=== PATIENT | female | born 1965 | race American Indian/Alaskan Native ===

== ENCOUNTER 2018-08-26 19:41 | Emergency (ER) | payer SELFPAY ==
[2018-08-26 20:17] LABS: Basophils # (Auto) 0.1 K/mm3 (0.0-0.1); Basophils % (Auto) 1.1 % (0.0-1.8); Eosinophils # (Auto) 0.2 K/mm3 (0.0-0.4); Eosinophils % (Auto) 2.5 % (0.0-4.3); Hematocrit 26.4 % (30.3-42.9); Lymphocytes # (Auto) 2.2 K/mm3 (1.2-5.4); Lymphocytes % (Auto) 32.6 % (13.4-35.0); Mean Corpuscular HGB Conc 30 % (30-34); Monocytes # (Auto) 0.6 K/mm3 (0.0-0.8); Monocytes % (Auto) 9.5 % (0.0-7.3); Platelet Count 484 K/mm3 (140-440); Red Blood Count 3.94 M/mm3 (3.65-5.03); Red Cell Distribution Width 19.3 % (13.2-15.2)
[2018-08-26 20:30] LABS: Mean Corpuscular Volume 67 fl (79-97)
[2018-08-26 20:33] LABS: BUN/Creatinine Ratio 19; Blood Urea Nitrogen 15 mg/dL (7-17); Calcium 10.1 mg/dL (8.4-10.2); Hemolysis Index 1
[2018-08-26 20:33] LABS: Bacteria,Urine 2+ /HPF (Negative); Bilirubin,Urine NEG (Negative); Blood,Urine NEG (Negative); Color,Urine Yellow (Yellow); Mucus,Urine 3+ /HPF; Urobilinogen,Urine < 2.0 mg/dL (<2.0)
[2018-08-26 20:35] LABS: HCG Qualitative,Urine Negative (Negative)
--- NOTE | 2018-08-26 22:24 | Emergency Department Report ---
ED Female HPI - General Chief complaint: Urogenital-Female Stated complaint: BACTERIA INFECTION Time Seen by Provider: 08/26/18 21:14 Source: patient Mode of arrival: Ambulatory Limitations: No Limitations - History of Present Illness Initial comments: Patient is a 52-year-old female who presents to emergency room with complaints of clear vaginal discharge that began 5 days ago. She has associated itching, burning, irritation, dysuria. States she did use douching. She denies any nausea, vomiting, diarrhea, fever, abdominal pain. States she is sexually active with one partner and uses protection. Denies any past medical history or allergies to medications. She states her last menstrual cycle was 2 weeks ago. The patient states she is a nonsmoker, occasional drinker, no drug use. she states it feels just like when she had BV in the past. - Related Data Previous Rx's Medication Instructions Recorded Last Taken Type Ferrous Sulfate [Ferrous Sulfate 324 mg PO DAILY #30 tablet. 08/26/18 Unknown Rx 324 MG] metroNIDAZOLE [Flagyl TAB] 500 mg PO Q12HR 7 Days #14 tab 08/26/18 Unknown Rx Allergies Allergy/AdvReac Type Severity Reaction Status Date / Time No Known Allergies Allergy Verified 08/26/18 19:49 ED Review of Systems ROS: Stated complaint: BACTERIA INFECTION Other details as noted in HPI Comment: All other systems reviewed and negative ED Past Medical Hx - Past Medical History Previous Medical History?: No - Surgical History Past Surgical History?: Yes Additional Surgical History: ear surgery - Social History Smoking Status: Never Smoker Substance Use Type: None - Medications Home Medications: Home Medications Medication Instructions Recorded Confirmed Last Taken Type Ferrous Sulfate [Ferrous Sulfate 324 mg PO DAILY #30 tablet. 08/26/18 Unknown Rx 324 MG] metroNIDAZOLE [Flagyl TAB] 500 mg PO Q12HR 7 Days #14 tab 08/26/18 Unknown Rx ED Physical Exam - General Limitations: No Limitations General appearance: alert, in no apparent distress - Head Head exam: Present: atraumatic, normocephalic - Eye Eye exam: Present: normal appearance, PERRL - ENT ENT exam: Present: mucous membranes moist - Respiratory Respiratory exam: Present: normal lung sounds bilaterally. Absent: respiratory distress, wheezes, rales, rhonchi, stridor, chest wall tenderness, accessory muscle use, decreased breath sounds, prolonged expiratory - Cardiovascular Cardiovascular Exam: Present: regular rate, normal rhythm, normal heart sounds. Absent: systolic murmur, diastolic murmur, rubs, gallop - GI/Abdominal GI/Abdominal exam: Present: soft, normal bowel sounds. Absent: distended, tende rness, guarding, rebound, rigid - External exam: Present: normal external exam. Absent: erythema, swelling, lesions, lacerations, ecchymosis, bleeding Speculum exam: Present: vaginal discharge (clear), cervical discharge (clear), other (applied behavior science specialist: carneisha, tech). Absent: vaginal bleeding, foreign body, tissue Bi-manual exam: Present: normal bi-manual exam. Absent: cervical motion tendernes, adnexal tenderness, adnexal mass - Back Exam Back exam: Absent: CVA tenderness (R), CVA tenderness (L) - Neurological Exam Neurological exam: Present: alert, oriented X3 - Psychiatric Psychiatric exam: Present: normal affect, normal mood - Skin Skin exam: Present: warm, dry, intact ED Course Vital Signs 08/26/18 19:47 Temperature 98.4 F Pulse Rate 90 Respiratory 16 Rate Blood Pressure 146/86 O2 Sat by Pulse 99 Oximetry ED Medical Decision Making - Lab Data Result diagrams: 08/26/18 19:59 08/26/18 19:59 Lab Results 08/26/18 08/26/18 08/26/18 Range/Units 19:59 19:59 20:00 WBC 6.8 (4.5-11.0) K/mm3 RBC 3.94 (3.65-5.03) M/mm3 Hgb 8.0 L (10.1-14.3) gm/dl Hct 26.4 L (30.3-42.9) % MCV 67 L (79-97) fl MCH 20 L (28-32) pg MCHC 30 (30-34) % RDW 19.3 H (13.2-15.2) % Plt Count 484 H (140-440) K/mm3 Lymph % (Auto) 32.6 (13.4-35.0) % Falls % (Auto) 9.5 H (0.0-7.3) % Eos % (Auto) 2.5 (0.0-4.3) % Baso % (Auto) 1.1 (0.0-1.8) % Lymph # 2.2 (1.2-5.4) K/mm3 Falls # 0.6 (0.0-0.8) K/mm3 Eos # 0.2 (0.0-0.4) K/mm3 Baso # 0.1 (0.0-0.1) K/mm3 Seg Neutrophils % 54.3 (40.0-70.0) % Seg Neutrophils # 3.7 (1.8-7.7) K/mm3 Sodium 139 (137-145) mmol/L Potassium 3.3 L (3.6-5.0) mmol/L Chloride 104.1 (98-107) mmol/L Carbon Dioxide 24 (22-30) mmol/L Anion Gap 14 mmol/L BUN 15 (7-17) mg/dL Creatinine 0.8 (0.7-1.2) mg/dL Estimated GFR > 60 ml/min BUN/Creatinine Ratio 19 % Glucose 99 (65-100) mg/dL Calcium 10.1 (8.4-10.2) mg/dL Urine Color Yellow (Yellow) Urine Turbidity Slightly-cloudy (Clear) Urine pH 5.0 (5.0-7.0) Ur Specific [place] 1.026 (1.003-1.030) Urine Protein 30 mg/dl (Negative) mg/dL Urine Glucose (UA) Neg (Negative) mg/dL Urine Ketones Tr (Negative) mg/dL Urine Blood Neg (Negative) Urine Nitrite Pos (Negative) Urine Bilirubin Neg (Negative) Urine Urobilinogen < 2.0 (<2.0) mg/dL Ur Leukocyte Esterase Neg (Negative) Urine WBC (Auto) 6.0 (0.0-6.0) /HPF Urine RBC (Auto) 2.0 (0.0-6.0) /HPF U Epithel Cells (Auto) 11.0 (0-13.0) /HPF Urine Bacteria (Auto) 2+ (Negative) /HPF Urine Mucus 3+ /HPF Urine HCG, Qual Negative (Negative) - Medical Decision Making Patient is a 52-year-old female who presents to emergency room with complaints of clear vaginal discharge that began 5 days ago. She has associated itching, burning, irritation, dysuria. States she did use douching. She denies any nausea, vomiting, diarrhea, fever, abdominal pain. States she is sexually active with one partner and uses protection. Denies any past medical history or allergies to medications. She states her last menstrual cycle was 2 weeks ago. The patient states she is a nonsmoker, occasional drinker, no drug use. she states it feels just like when she had BV in the past. no abd tenderness on exam. VSS. UA without evidence of UTI. wet prep is negative. G/C sent. no leukocytosis, no CMT, no fever, no evidence of PID. Labs with anemia present, pt states she does have heavy cycles, MCV is low most likely due to an iron defic iency, will start pt on iron supplement and have pt have further evaluation and anemia panel as an outpatient by her PCP. pt given flagyl for her vaginitis. advised to take as prescribed. discussed not to drink ETOH while taking. Check back in medical records in one week for results of your tests. if concern for any other STDs please see health department or primary care doctor. Follow-up with primary care doctor in the next 2-3 days. return to the emergency room for any new or worsening symptoms. - Differential Diagnosis BV, yeast, STD, vaginitis, PID Critical care attestation.: If time is entered above; I have spent that time in minutes in the direct care of this critically ill patient, excluding procedure time. ED Disposition Clinical Impression: Vaginitis Qualifiers: Chronicity: acute Qualified Code(s): N76.0 - Acute vaginitis Anemia Qualifiers: Anemia type: unspecified type Qualified Code(s): D64.9 - Anemia, unspecified Disposition: TO HOME OR SELFCARE Is pt being admited?: No Does the pt Need Aspirin: No Condition: Stable Instructions: Vaginitis (ED), Anemia (ED) Additional Instructions: Please take medication as prescribed. Check back in medical records in one week for results of your tests. if concern for any other STDs please see health department or primary care doctor. Follow-up with primary care doctor in the next 2-3 days. To the emergency room for any new or worsening symptoms. Prescriptions: Ferrous Sulfate [Ferrous Sulfate 324 MG] 324 mg PO DAILY #30 tablet. metroNIDAZOLE [Flagyl TAB] 500 mg PO Q12HR 7 Days #14 tab Referrals: PRINCE RASMUSSEN MD [Primary Care Provider] - 2-3 Days Time of Disposition: 23:40 Print Language: FAROESE
[2018-08-27 02:00] VITALS: BP 136/80
== END 2018-08-27 00:24 | disposition home or self-care (01) ==
LOC: ED 19:41
DX: N76.0 Acute vaginitis (principal); D64.9 Anemia, unspecified; Z98.890 Other specified postprocedural states; Z79.899 Other long term (current) drug therapy
CPT/HCPCS: 36415; 80048; 81001; 81025; 85025; 87210; 87591; 99284